=== PATIENT | male | born 1975 | race Caucasian/White ===

== ENCOUNTER 2023-11-07 12:54 | Outpatient (CLI) | payer MEDICAID | END 2023-11-07 23:59 | disposition home or self-care (01) | LOC: RAD 12:54 | PROVIDERS: ATTEND Nurse Practitioner Primary Care | DX: R05.1 Acute cough (principal); F17.210 Nicotine dependence, cigarettes, uncomplicated | CPT/HCPCS: 71046 ==

== ENCOUNTER 2023-11-10 08:32 | Emergency (ER) | payer MEDICAID ==
[~2023-11-10] VITALS: Ht 182.9 cm; Wt 77.7 kg
[2023-11-10] MEDS ORDERED: ALBU8HFA INH (10:31)
[2023-11-10] MEDS ORDERED: BENZ-38 PO (10:31)
[2023-11-10] MEDS ORDERED: AZIT250T83 PO (10:31)
[2023-11-10 10:57] VITALS: BP 125/92; PULSE 73; RESP 17; TEMP 98.7; O2SAT 96
== END 2023-11-10 10:58 | disposition home or self-care (01) ==
LOC: ER 08:32
DX: R05.9 Cough, unspecified (principal)
CPT/HCPCS: 71046; 99283